=== PATIENT | male | born 1980 | race Caucasian/White ===

== ENCOUNTER → 2017-05-08 | Outpatient (REF) ==
[~2017-05-08] MED LIST: HYDR-4309 PO; IBUP600T22 PO
== END ==
LOC: AUD 14:20
PROVIDERS: ATTEND Internal Medicine
DX: Z01.10 Encounter for examination of ears and hearing without abnormal findings (principal)
CPT/HCPCS: 92552

== ENCOUNTER → 2018-04-30 | Outpatient (REF) ==
[~2018-04-30] MED LIST changes: -HYDR-4309 PO; +HYDR-653 PO
== END ==
LOC: AUD 10:30
PROVIDERS: ATTEND Internal Medicine
DX: Z01.12 Encounter for hearing conservation and treatment (principal)
CPT/HCPCS: 92552